=== PATIENT | female | born 1990 | race Caucasian/White ===

== ENCOUNTER 2016-10-30 10:36 | Emergency (ER) | payer OTHER ==
--- NOTE | 2016-10-30 10:54 | ERNOTE ---
Medical Problem HPI - Narrative Date of Service: 10/30/16 - General Chief Complaint: General Assessment Time Seen by Provider: 10/30/16 10:53 Source: patient Exam Limitations: no limitations - Immun/Allergies/Home Medications Immunizations: IMMUNIZATION HX Immunizations Up to Date No History of Influenza Vaccine No Hx Pneumococcal Vaccination No Allergies/Adverse Reactions: Allergies No Known Allergies Allergy (Verified 10/30/16 10:43) Home Medications: HOME MEDICATIONS [id number]/Iron Fumarate/FA/Dss [ 19 Tablet] 1 each PO DAILY 08/04/16 [Last Taken Unknown] - History of Present History Narrative: Pt sts that she has been nauseated for the past 3-4 days. She sts that today she has been dizzy and fell against a cabinet at work. She sts that she has been eating and drinking normally. No diarrhea and only one emesis. No fever or chills, no abdominal pain or urinary tract symptoms. No chest pain or headache Timing: constant Severity: moderate Modifying Factors - (Improves): Present: rest Modifying Factors - (Worsens): Present: movement, other - standing Review of Systems - Review of Systems Constitutional: Present: See HPI, decreased activity level EYE: Present: no symptoms reported ENT: Present: no symptoms reported Respiratory: Present: no symptoms reported Cardiology: Present: no symptoms reported Gastrointestinal/Abdominal: Present: nausea, vomiting. Absent: diarrhea, constipation, abdominal pain, eating less, drinking less Genitourinary: Present: no symptoms reported Musculoskeletal: Present: no symptoms reported Skin: Present: no symptoms reported Neurological: Present: no symptoms reported Endocrine: Present: no symptoms reported Hematologic/Lymphatic: Present: no symptoms reported Psych: Present: no symptoms reported All Other Systems: All systems neg except as marked - Patient's Past Medical History Patient History - Medical: Other Patient History - Cancer: No Hx of Cancer Patient History - Surgical Procedures: Other - Family History Father Family History - Medical: Family History - Cardiac/Respiratory: CVA/Stroke, Deep Vein Thrombosis, Myocardial Infarction Mother Family History - Medical: Other Family History - Cardiac/Respiratory: Asthma Sister Family History - Medical: Other Family History - Cardiac/Respiratory: No pertinent hx Grandmother-Paternal Family History - Medical: , No pertinent hx Family History - Cardiac/Respiratory: No pertinent hx Grandmother-Maternal Family History - Medical: , No pertinent hx Family History - Cardiac/Respiratory: COPD - Social History Living Situations: home Smoking Status: Never smoker Alcohol Use: rarely Drug Use: none Physical Exam - Physical Exam General Appearance: Present: alert, mild distress Eye Exam: Normal inspection: bilateral, PERRL: bilateral, EOMI: bilateral Ears, Nose, Throat: Present: normal ENT inspection Neck: Present: normal inspection Respiratory: Present: no respiratory distress Cardiovascular/Chest: Present: regular rate, rhythm Gastrointestinal/Abdominal: Present: normal bowel sounds Back Exam: Present: normal inspection Extremity Exam: Present: normal inspection Neurological Exam: Present: alert, oriented, normal mood/affect, airdox fitter II-XII nml as tested Skin Exam: Present: normal color Lymphatic Exam: Present: no adenopathy ED Progress - Results and Orders Patient's Lab Results:: I have reviewed the patient's lab results. - Vital Signs Patient's Vital Signs:: I have reviewed the patient's vital signs. Vital Signs: Vital Signs 10/30/16 10:39 Temperature 35.8 C L Pulse Rate 60 Respiratory 12 Rate Blood Pressure 127/72 O2 Sat by Pulse 99 Oximetry - Progress/Reassessment Chief Complaint: General Assessment Progress:: Improved Progress Note-Subjective: 10/30/16 13:17 pt is no longer dizzy or lightheaded and ready for discharge Plan - Plan Plan: work note for today and f/u with PMD Departure - Departure Clinical Impression: Dehydration symptoms Disposition: Home self-care Instructions: Form - Return To Work Referrals: Danay Montiel, SPORTS DIRECTOR [Primary Care Provider] -
[2016-10-30 10:58] LABS: Urine Bilirubin Negative (NEGATIVE); Urine Blood Negative /ul (NEGATIVE); Urine Ketone Negative (NEGATIVE); Urine Nitrite Negative (NEGATIVE); Urine Protein Negative (NEGATIVE); Urine Urobilinogen Normal (NORMAL); Urine pH 6.5 pH (5.0-7.0)
[2016-10-30] MEDS ORDERED: NORMAL SALINE 1,000 ML IV ONE (10:59)
[2016-10-30 11:06] LABS: Urine Amorphous Sediment TRACE (NONE-FEW); Urine Appearance Clear; Urine Bacteria TRACE; Urine Color Yellow; Urine RBC None Seen /hpf (0-5); Urine WBC 0-5 /hpf (0-5)
[2016-10-30 11:14] LABS: Hematocrit 41.5 % (37.0-47.0); Hemoglobin 14.7 gm/dL (12.5-16.0); Mean Cell Volume 88.7 fl (78-100); Mean Corpuscular Hemoglobin 31.4 pg (27-31); Mean Corpuscular Hgb Conc 35.4 g/dl (32-36); Neutrophil # 3.6 K/mm3 (1.3-6.0); Neutrophil % 56.1 % (42-75.0); Platelet Count 243 K/mm3 (150-450); Red Blood Count 4.68 M/mm3 (4.2-5.4); Red Cell Distribution Width 12.7 % (11.5-14.0); White Blood Count 6.4 K/mm3 (4.0-10.5)
[2016-10-30 11:28] LABS: Anion Gap 13.4 mmol/L (6.8-13.8); BUN/Creatinine Ratio 17.7 (9.0-21.6); Calcium * 9.7 mg/dL (7.9-10.9); Carbon Dioxide 28.3 mmol/L (24-32.6); Estimated Creat Clear 121.6; Potassium 3.7 mmol/L (3.4-4.6)
[2016-10-30 13:46] VITALS: BP 124/71
== END 2016-10-30 13:49 | disposition home or self-care (01) ==
LOC: ER 10:36
DX: R63.8 Other symptoms and signs concerning food and fluid intake (principal); R11.2 Nausea with vomiting, unspecified; R42 Dizziness and giddiness